=== PATIENT | female | born 1990 | race American Indian/Alaskan Native ===

== ENCOUNTER 2017-08-08 14:15 | Emergency (ER) | payer MEDICAID ==
--- NOTE | 2017-08-08 14:41 | EDM.PDOC ---
ED HPI GENERAL MEDICAL PROBLEM - General Chief Complaint: Upper Extremity Injury/Pain Stated Complaint: RT HAND PAIN Time Seen by Provider: 08/08/17 14:40 Source of Information: Reports: Patient History Limitations: Reports: No Limitations - History of Present Illness INITIAL COMMENTS - FREE TEXT/NARRATIVE: 37-year-old female presents the ED with severe right hand pain. She states she has numbness and tingling in particular to her third and second fingers. History reveals that she had a puncture wound to the palmar aspect of her hand ie. "[place] man[place]". The residual laceration puncture wound was a piece of broken ashtray or porcelain. She removed the piece of porcelain herself and x- rays at the hospital were done in [place] where she was at the time. No foreign bodies were identified remain within the hand. Up-to-date on her tetanus toxoid within the last year. Over the last 24 hours to hand but has become increasingly more painful and she now has inability to fully extend her fingers or to make a fist. She is holding her hand completely and a flexion - contracture pattern. 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 She reports her pain is 10 out of 10 in her right hand. She has no systemic signs of illness such as fever chills but she states she hardly slept well last night due to the severity of the pain in her hand. Not on any antibiotic she did not receive any antibiotics at the time of injury. Laceration was cleansed and then sutured under local anesthetic. Of note the patient is right-hand dominant. Onset: Gradual Onset Date: 08/07/17 (Suffered a puncture wound to the Kevin her right hand 3 days ago in [place].) Duration: Day(s): Location: Reports: Upper Extremity, Right Quality: Reports: Ache, Pressure, Stabbing, Throbbing Severity: Severe Improves with: Reports: None Worsens with: Reports: Movement Context: Denies: Activity, Exercise, Lifting, Sick Contact, Trauma, Other Associated Symptoms: Denies: Fever/Chills, Headaches, Loss of Appetite, Malaise , Nausea/Vomiting, Rash, Seizure, Shortness of Breath, Syncope Treatments TOWEL WEAVER: Reports: NSAIDS Right Hand Pain Score (Numeric/FACES): 10 - Related Data Allergies Allergy/AdvReac Type Severity Reaction Status Date / Time cefaclor [From Ceclor] AdvReac Vomiting Verified 08/08/17 14:30 Home Meds: Home Meds . [No Known Home Meds] 08/08/17 [History] Past Medical History - Past Surgical History HEENT Surgical History: Reports: Oral Surgery Social & Family History - Tobacco Use Smoking Status *Q: Never Smoker - Caffeine Use Caffeine Use: Reports: Coffee - Recreational Drug Use Recreational Drug Use: No - Living Situation & Occupation Living situation: Reports: Single, with Significant Other Occupation: Unemployed Review of Systems - Review of Systems Review Of Systems: See Below Constitutional: Reports: No Symptoms Eyes: Reports: No Symptoms Ears: Reports: No Symptoms Nose: Reports: No Symptoms Mouth/Throat: Reports: No Symptoms Respiratory: Reports: No Symptoms Cardiovascular: Reports: No Symptoms GI/Abdominal: Reports: No Symptoms Genitourinary: Reports: No Symptoms Musculoskeletal: Reports: Other Skin: Reports: No Symptoms (Severe right hand pain as described in history of present illness) Neurological: Reports: Paresthesia (RCC is right hand particularly in the second and third fingers where they feel numb tingling in) Psychiatric: Reports: No Symptoms ED EXAM, GENERAL - Physical Exam Exam: See Below Exam Limited By: No Limitations General Appearance: Alert, Moderate Distress (She has an obvious pain and discomfort she can hardly sit still on the bed due to the throbbing pain in the palm of her hand.) Respiratory/Chest: No Respiratory Distress, Lungs Clear, Normal Breath Sounds Cardiovascular: Normal Peripheral Pulses, Regular Rate, Rhythm, No Edema, No Gallop, No Murmur Peripheral Pulses: 3+: Radial (L), Radial (R) Extremities: Other (Examination limited to her right hand. It shows that she has a flexion contracture of her fingers or clot hand. She is unable to extend her fingers area she has a puncture wound in the middle of her palm of her hand which is been sutured. His is almost in the mid palmar crease. The history suggests a deep puncture wound in [place] occurred at time of injury. Therefore this represents a hand surgical emergency.) Neurological: Alert, Oriented, CN II-XII Intact, Normal Cognition Psychiatric: Normal Affect, Normal Mood Skin Exam: Warm, Dry, Intact, Other (The palmar hand is very warm to palpation suggesting underlying infection. It is slightly) Course - Vital Signs Last Recorded V/S: Last Vital Signs Temp 37.0 C 08/08/17 14:27 Pulse 85 08/08/17 14:27 Resp 16 08/08/17 14:27 BP 124/77 08/08/17 14:27 Pulse Ox 100 08/08/17 14:27 - Orders/Labs/Meds Orders: Active Orders 24 hr Category Date Time Status Peripheral IV Care [RC] . DIRECTED Care 08/08/17 14:54 Active Ketorolac [Toradol] Med 08/08/17 15:00 Active 30 mg IVPUSH ONETIME Sodium Chloride 0.9% [Saline Flush] Med 08/08/17 14:54 Active 10 ml FLUSH ASDIRECTED PRN Peripheral IV Insertion Adult [OM.PC] Stat Oth 08/08/17 14:54 Ordered Medication Orders Ketorolac Tromethamine (Toradol) 30 mg IVPUSH ONETIME [facility] Last Admin: 08/08/17 15:15 Dose: 30 mg Sodium Chloride (Saline Flush) 10 ml FLUSH ASDIRECTED PRN PRN Reason: Keep Vein Open Last Admin: 08/08/17 15:19 Dose: 10 ml Labs: Laboratory Tests 08/08/17 08/08/17 08/08/17 Range/Units 15:05 15:05 15:05 WBC 11.86 H (3.98-10.04) K/mm3 RBC 4.37 (3.98-5.22) M/mm3 Hgb 13.2 (11.2-15.7) gm/L Hct 40.2 (34.1-44.9) % MCV 92.0 (79.4-94.8) fl MCH 30.2 (25.6-32.2) pg MCHC 32.8 (32.2-35.5) g/dl RDW Std Deviation 45.0 (36.4-46.3) fL Plt Count 284 (182-369) K/mm3 MPV 9.8 (9.4-12.3) fl Neutrophils % (Manual) 79 H (40-60) % Band Neutrophils % 0 (0-10) % Lymphocytes % (Manual) 20 (20-40) % Atypical Lymphs % 0 % Monocytes % (Manual) 0 L (2-10) % Eosinophils % (Manual) 1 (0.7-5.8) % Basophils % (Manual) 0 L (0.1-1.2) Platelet Estimate Adequate RBC Morph Comment Normal Sodium 141 (136-145) mEq/L Potassium 3.9 (3.5-5.1) mEq/L Chloride 108 H (98-107) mEq/L Carbon Dioxide 28 (21-32) mEq/L Anion Gap 8.9 (5-15) BUN 10 (7-18) mg/dL Creatinine 0.6 (0.55-1.02) mg/dL Est Cr Clr Drug Dosing 117.00 mL/min Estimated GFR (MDRD) > 60 (>60) mL/min BUN/Creatinine Ratio 16.7 (14-18) Glucose 89 (74-106) mg/dL Calcium 8.9 (8.5-10.1) mg/dL Total Bilirubin 0.5 (0.2-1.0) mg/dL AST 18 (15-37) U/L ALT 23 (14-59) U/L Alkaline Phosphatase 79 (46-116) U/L C-Reactive Protein < 0.2 (<1.0) mg/dL Total Protein 6.8 (6.4-8.2) g/dl Albumin 3.7 (3.4-5.0) g/dl Globulin 3.1 gm/dL Albumin/Globulin Ratio 1.2 (1-2) HCG, Qual Negative (NEGATIVE) Meds: Medications Generic Name Dose Route Start Last Admin Trade Name Freq PRN Reason Stop Dose Admin Ketorolac Tromethamine 30 mg 08/08/17 15:00 08/08/17 15:15 Toradol IVPUSH 30 mg ONETIME [facility]A Administration Sodium Chloride 10 ml 08/08/17 14:54 08/08/17 15:19 Saline Flush FLUSH 10 ml ASDIRECTED PRN Administration Keep Vein Open Discontinued Medications Generic Name Dose Route Start Last Admin Trade Name Freq PRN Reason Stop Dose Admin Hydromorphone HCl 0.5 mg 08/08/17 14:55 08/08/17 15:13 Dilaudid IVPUSH 08/08/17 14:56 0.5 mg ONETIME ONE Administration Clindamycin Phosphate 900 mg/ 106 mls @ 100 mls/hr 08/08/17 14:54 08/08/17 15 :17 Sodium Chloride IV 08/08/17 15:57 100 mls/hr ONETIME ONE Administration Ondansetron HCl 4 mg 08/08/17 14:55 08/08/17 15:11 Zofran IVPUSH 08/08/17 14:56 4 mg ONETIME ONE Administration - Radiology Interpretation Free Text/Narrative:: 27-year-old female presents to the ED with severe pain in the palm of her right hand. History suggests that she had a puncture wound to the mid palmar crease about 3 days ago from a piece of broken ashtray a porcelain. An x-ray was done at [facility] and she did not have any retained foreign body in her hand at that time. The wound was cleansed and sutured. Over the last 24 hours the had his become increasingly more painful and swollen. She has no paresthesias in the distribution of her second and third fingers. 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 This represents a hand surgeon emergency. Decision made by them to return to [place] for definitive care and management. Plan will be baseline labs here clindamycin 900 mg to be given IV. - Re-Assessments/Exams Free Text/Narrative Re-Assessment/Exam: 08/08/17 16:17 White count is elevated at 11.86 with 79% neutrophils and no bands reported. Hemoglobin is 13.2 with hematocrit of 40.2. O2 184,000. Sodium was 141 with potassium of 3.9. Chloride is minimally elevated at 108. Bicarbonate 28. Renal function normal with a BUN of 10 and creatinine of 0.6. Blood sugar is 89. Liver function is normal. C-reactive protein is less than 0.2. BCG is negative. Patient has completed her 900 mg of clindamycin IV. She will now make preparations with her to travel back to [place] for definitive surgical management of her hand injury. She is to travel directly to the hospital once they get back to [place] where they reside. She is to remain nothing by mouth until after review with hand surgeon. Departure - Departure Time of Disposition: 16:18 Disposition: Home, Self-Care 01 Condition: Serious Clinical Impression: Palmar space infection of right hand - Discharge Information Referrals: PCP,None [Ordering Only Provider] - Forms: ED Department Discharge Additional Instructions: Evaluation the emergent today revealed a puncture wound to the palmar aspect of your right hand that occurred 3 days ago from a broken ashtray. No foreign bodies were identified on x-ray of the hand at the initial time of evaluation in [place]. Wound was then cleansed and sutured closed. Presentation to the ED today you have severe pain in your right hand with paresthesias or numbness and tingling in the distribution of the index and third finger. The hand was held in a claw formation with inability to extend the fingers. There is increased warmth from the palm of the hand with slight thickening of the tissues in this area. This is strongly suggestive of a developing serious infection of the palm of her hand. You're therefore given clindamycin 900 mg intravenously in the ED. This is discussed held help start fighting off infective process. You need consultation with a hand surgeon and you've made a decision to return back to [place] for definitive management which I encouraged strongly. Need to travel to [place] soon as possible. Nothing to eat for at least 4 hours prior to seeing the hand surgeon in case you have to go emergently to surgery. - My Orders Last 24 Hours: My Active Orders 08/08/17 14:54 Peripheral IV Care [RC] . DIRECTED Sodium Chloride 0.9% [Saline Flush] 10 ml FLUSH ASDIRECTED PRN Peripheral IV Insertion Adult [OM.PC] Stat 08/08/17 15:00 Ketorolac [Toradol] 30 mg IVPUSH ONETIME - Assessment/Plan Last 24 Hours: My Active Orders 08/08/17 14:54 Peripheral IV Care [RC] . DIRECTED Sodium Chloride 0.9% [Saline Flush] 10 ml FLUSH ASDIRECTED PRN Peripheral IV Insertion Adult [OM.PC] Stat 08/08/17 15:00 Ketorolac [Toradol] 30 mg IVPUSH ONETIME
[2017-08-08] MEDS ORDERED: Sodium Chloride 0.9% 10 ML Syringe FLUSH PRN (14:54)
[2017-08-08] MEDS ORDERED: Clindamycin Phosphate 900 MG in Sodium Chloride 0.9% 100 ML IV ONE (14:54)
[2017-08-08] MEDS ORDERED: HYDROmorphone 0.5 MG/0.5 ML SYRINGE IVPUSH ONE (14:55)
[2017-08-08] MEDS ORDERED: Ondansetron 4 MG/2 ML SDV IVPUSH ONE (14:55)
[2017-08-08] MEDS ORDERED: Ketorolac 30 MG/ML SDV IVPUSH SCH (15:00)
== END 2017-08-08 16:24 | disposition home or self-care (01) ==
LOC: JD.ED 14:15
DX: L08.9 Local infection of the skin and subcutaneous tissue, unspecified (principal); Z88.1 Allergy status to other antibiotic agents
CPT/HCPCS: 36415; 80053; 84703; 85025; 86140; 96365; 96375; 99283; J1170; J1885; J2405; J7030; J7050; 99284